=== PATIENT | male | born 1945 | race African-American/Black ===

== ENCOUNTER 2017-05-15 08:42 | Day surgery (SDC) | payer OTHER ==
[~2017-05-15] VITALS: Ht 170.2 cm; Wt 79.1 kg
[2017-05-15] VITALS (8 sets, daily range): BP systolic 139–186; BP diastolic 69–100; PULSE 56–73; RESP 20; TEMP 97.9–98; O2SAT 93–97
[~2017-05-15 08:42] MED LIST: GLUC10TA3 PO; GLUCTAB PO
[2017-05-15] MEDS ORDERED: LANTUS2P SQ (09:07)
[2017-05-15] MEDS ORDERED: CIPR500T2 PO (09:07)
[2017-05-15] MEDS ORDERED: SACC1CAP3 PO (09:07)
[2017-05-15] MEDS ORDERED: NOVOLOGP2 SQ (09:07)
[2017-05-15] MEDS ORDERED: CHOL5000 PO (09:07)
[2017-05-15] MEDS ORDERED: SODIUM CHLOR 0.9% 1000 ML IV SCH (09:30)
[2017-05-15] MEDS ORDERED: MIDAZOLAM HCL 5 MG/5 ML VIAL ONE (11:10)
[2017-05-15] MEDS ORDERED: LIDOCAINE HCL 1% 20 ML VIAL ONE (11:14)
--- NOTE | 2017-05-15 12:10 | PD.RAD ---
Post CT Procedure Prog Note Pre Procedure Diagnosis: (1) Hepatitis C Post Procedure Diagnosis: (1) Hepatitis C Procedure Date: May 15, 2017 Supervising Radiologist: Luiz Zheng Anesthesia: Local, Conscious Sedation Plan of Activity Patient to Unit: [facility] Patient Condition: Good See PACS Report for procedural detail/treatment Biopsy Imaging Guidance: CT Side: Right Biopsy Procedure: Liver Specimen: Core Biopsy Luiz Zheng MD May 15, 2017 12:10
--- NOTE | 2017-05-15 13:39 | RADRPT ---
EXAM DATE/TIME: 05/15/2017 11:53 [place] COMPARISON: No previous studies available for comparison. INDICATIONS : Hepatitis C. SEDATION TIME: 30 minutes BIOPSY SITE: Right MEDICATION(S): 1.) 3 mg midazolam (Versed) IV 2.) 150 mcg fentanyl (Sublimaze) IV DEVICE(S): 1.) 18 gauge BioPince needle MEDICAL HISTORY : Hepatitis C. SURGICAL HISTORY : None. ENCOUNTER: Initial ACUITY: 1 day PAIN SCORE: 0/10 LOCATION: Right A total of two core specimen(s) were obtained and sent to the laboratory for pathologic evaluation. PROCEDURE: 1. CT guided liver biopsy. 2. Conscious sedation with continuous EKG and oximetry monitoring. 3. EKG and oximetry remained stable throughout the procedure. Prior to the procedure informed consent was obtained. Any appropriate prior imaging studies were rev iewed. Using automated exposure control and adjustment of the mA and/or kV according to patient size, radiat ion dose was kept as low as reasonably achievable to obtain optimal diagnostic quality images. DICOM format image data is available electronically for review and comparison. The site was prepped in a sterile fashion. Full sterile technique was used, including cap, mask, barb rile gloves and gown and a large sterile sheet. Hand hygiene and 2% chlorhexidine and/or betadine/al cohol prep was utilized per protocol for cutaneous antisepsis. The skin and subcutaneous tissues wer e infiltrated with local anesthetic solution. With CT guidance the previously identified target was localized. Biopsy was performed using the presc ribed needle as above. Adequate hemostasis was obtained with compression at the puncture site. Follow-up CT scan reveals no hemorrhage. The patient tolerated the procedure well and there were no complications. The patient was returned to the Radiology Outpatient Unit in stable condition. CONCLUSION: Uncomplicated CT guided biopsy. Luiz Zheng MD on May 15, 2017 at 13:37 Board Certified Radiologist. This report was verified electronically.
[2017-05-15] MEDS ORDERED: HYDROmorphone HCL 2 MG TAB PO PRN (15:00)
== END 2017-05-15 16:00 | disposition home or self-care (01) ==
LOC: HRAD 08:42 → HRIP 08:43 → HRAD 16:00
PROVIDERS: ATTEND Internal Medicine Gastroenterology
DX: B18.2 Chronic viral hepatitis C (principal)
CPT/HCPCS: 47000; 77012; 88307; 88313; J2250; J3010